=== PATIENT | female | born 1955 | race Caucasian/White ===

== ENCOUNTER 2021-04-18 05:31 | Inpatient (IN) | payer OTHER, SELFPAY ==
[2021-04-18] VITALS (13 sets, daily range): BP systolic 166–196; BP diastolic 60–80; PULSE 55–75; RESP 16–20; TEMP 35.4–36.2; O2SAT 92–100
--- NOTE | ~2021-04-18 | MR_ITS ---
EXAMINATION: MR MRCP wo/w con/w 3D wo ind DATE: 04/19/2021 09:45 INDICATION: Abdominal pain, concern for choledocholithiasis TECHNIQUE: Magnetic resonance imaging (MRI) of the abdomen was performed without and with intravenous contrast. Sequences included coronal T2-weighted SS-FSE ARC, coronal T2-weighted FS SS-FSE, coronal T2-weighted 2D FS FIESTA, Water:Coronal LAVA-Flex, sagittal T2-weighted SS-FSE ARC, axial SSFSE ARC, axial 3D DualEcho, axial DWI B=600, axial T1-weighted LAVA, FAT:Coronal LAVA-Flex, and coronal in and opposed phase LAVA-Flex. Thick-slab T2-weighted FRFSE-XL images were obtained for magnetic resonance cholangiopancreatography (MRCP). Maximum intensity projection 3-D reconstructions of the volumetric data were created by the technologist. Postcontrast sequences included a time course of axial T1-weig hted LAVA, FAT:Coronal LAVA-Flex, coronal in and opposed phase LAVA-Flex, and Water:Coronal LAVA-Flex . COMPARISON: CT, 04/18/2021 CONTRAST: Multihance, 20 cc FINDINGS: ABDOMEN MRI: The gallbladder is surgically absent. There appears to be a stone in the cystic duct rem nant with mild dilatation of the cystic duct and surrounding inflammatory change. A small amount of i nflammatory fluid tracks along the duodenum There is loss of hepatic parenchymal signal on opposed ph ase imaging, consistent with hepatic steatosis. The spleen, pancreas, and adrenal glands are normal. Cysts of the kidneys measure up to 1.2 cm on the left. There are no pathologically enlarged abdominal lymph nodes. No dilated loops of bowel are evident. No abnormal enhancement is present after contras t administration. There is mild lumbar spondylosis. ABDOMEN MRCP: There is no intrahepatic or extrahepatic biliary dilatation. The pancreatic duct is nor mal in caliber. No choledocholithiasis is identified. IMPRESSION: 1. Likely small stone in the cystic duct remnant causing dilation of the cystic duct and surrounding inflammatory change. Reviewed, dictated and finalized at location A.
--- NOTE | ~2021-04-18 | XR_ITS ---
EXAMINATION: XR chest 2V EXAM DATE: 04/20/2021 17:33 INDICATION: Hypoxia. TECHNIQUE: Frontal and lateral projections of the chest obtained and reviewed. Comparison is made to prior examination from 04/18/2021. FINDINGS: There is right lower lobe granuloma. The lungs are otherwise clear. There are no pleural e ffusions. The cardiomediastinal silhouette is within normal limits. There is no pneumothorax suspec tiana. The bones and soft tissues are unremarkable. IMPRESSION: No acute cardiopulmonary findings. Reviewed, dictated and finalized at location A.
--- NOTE | ~2021-04-18 | XR_ITS ---
EXAMINATION: XR ERCP DATE: 04/20/2021 15:12 INDICATION: Abdominal pain. TECHNIQUE: 6 spot fluoroscopic images of the right upper quadrant were obtained during endoscopic ret rograde cholangiopancreatography (ERCP). Fluoroscopy exposure time was 217 seconds. COMPARISON: MRCP 04/19/2021 FINDINGS: Images demonstrate the endoscope in the second portion the duodenum. Images show contrast o pacification of the biliary tree and balloon sweeping of the common duct. There are surgical clips fr om cholecystectomy. IMPRESSION: 1. Balloon sweeping of the common duct. Please refer to the ERCP procedure note for additional detail s. Reviewed, dictated and finalized at location A. IMPRESSION: 1. Balloon sweeping of the common duct. Please refer to the ERCP procedure note for additional details.
--- NOTE | ~2021-04-18 | XR_ITS ---
EXAMINATION: XR chest 2V 04/18/2021 06:21 INDICATION: Chest pressure PROCEDURE: 2 view chest COMPARISON: No prior studies for comparison. FINDINGS: The lungs are clear. The cardiomediastinal silhouette is within normal limits. There are no pleural effusions. There is no pneumothorax suspected. IMPRESSION: 1: NO ACUTE CARDIOPULMONARY DISEASE. Reviewed, dictated and finalized at location A.
--- NOTE | ~2021-04-18 | CT_ITS ---
EXAMINATION: CT abdomen pelvis w con DATE: 04/18/2021 08:39 INDICATION: Bilateral upper abdominal pain and nausea TECHNIQUE: Computed tomography (CT) of the abdomen and pelvis was performed with 100 cc Omnipaque 350 intravenous contrast. The dose-length product was 1503.35 mGy-cm. Automated exposure control and ite rative reconstruction technique were employed. COMPARISON: None. FINDINGS: Lung bases are unremarkable. There is densely calcified granuloma right lower lobe. Heart s ize normal. No significant pleural or pericardial effusion. No significant vascular abnormality. No lymphadenopathy. Fatty infiltration of the liver. There are c holecystectomy clips. There is a stone in what appears to be the common duct, image 58 The spleen, pa ncreas, adrenal glands are unremarkable. There are small hypodense lesions of the kidneys, most likel y benign cysts. Bowel pattern is nonobstructive. No abnormal pelvic masses or fluid collections. Small fat-containing umbilical hernia. IMPRESSION: 1. Possible choledocholithiasis. Prior cholecystectomy. Consider correlation with MRCP. 2: Hepatic steatosis. Reviewed, dictated and finalized at location A. IMPRESSION: 1. Possible choledocholithiasis. Prior cholecystectomy. Consider correlation wi MRCP. 2: Hepatic steatosis.
--- NOTE | 2021-04-18 05:35 | ECG_ITS ---
Measurements Intervals [place] Rate: 55 P: 38 CT: 166 QRS: -7 QRSD: 96 T: 31 QT: 437 QTc: 419 Interpretive Statements SINUS BRADYCARDIA BORDERLINE R WAVE PROGRESSION, ANTERIOR LEADS BORDERLINE T WAVE ABNORMALITY- ANTERIOR LEADS BORDERLINE ECG Electronically Signed On 04-18-2021 8:41:30 CDT by Hugo Salazar D.O.
[2021-04-18 05:57] LABS: Basophils Absolute Auto 0.1 K/mm3 (0.0-0.1); Basophils Percent Auto 0.5 % (0.2-1.2); Eosinophils Absolute Auto 0.2 K/mm3 (0-0.3); Hematocrit 38.8 % (37.0-47.0); Hemoglobin 12.3 g/dL (12.0-15.0); Immature Granulocyte Absolute 0.04 K/mm3 (0.00-0.031); Immature Granulocyte Percent A 0.4 % (0-0.5); Lymphocytes Absolute Auto 2.05 K/mm3 (0.9-3.2); Lymphocytes Percent Auto 20.5 % (18.3-44.2); Mean Corpuscular HGB Conc 31.7 g/dl (32-36); Mean Corpuscular Hemoglobin 30.4 pg (26-34); Mean Corpuscular Volume 95.8 fl (80-100); Mean Platelet Volume 10.4 fl (7.4-10.4); Monocytes Absolute Auto 0.7 K/mm3 (0.1-0.6); Monocytes Percent Auto 6.7 % (2.6-8.5); Neutrophils Percent Auto 69.9 % (45.5-73.1); Platelet Count Result 294 k/mm3 (150-375); Red Blood Count 4.05 M/mm3 (4.2-5.4); Red Cell Distribution Width 12.6 % (11.5-14.5)
[2021-04-18 06:09] LABS: INR 0.8; Prothrombin Time 11.3 Seconds (11.1-14.7)
[2021-04-18 06:10] LABS: Anion Gap 8 mmol/L (8-16); Blood Urea Nitrogen 23 mg/dL (7-17); Calcium 9.4 mg/dL (8.4-10.2); Carbon Dioxide 25 mmol/L (22-30); Chloride 104 mmol/L (98-107); Estimated CRCL calculation 68 ml/min; Estimated Glomerular Filt Rate > 60; Glucose 146 mg/dL (65-110); Partial Thromboplastin Time 26.5 SECONDS (22.3-36.8); Potassium 4.8 mmol/L (3.4-5.0); Sodium 137 mmol/L (137-145)
[2021-04-18 06:21] LABS: Troponin I < 0.012 ng/mL (0.000-0.034)
--- NOTE | 2021-04-18 08:07 | ED.GENADULT ---
HPI - General Adult General Chief complaint: Chest Pain Stated complaint: chest pressure Time Seen by Provider: 04/18/21 08:00 Source: RN notes reviewed History of Present Illness HPI narrative: Patient presents emergency department from home for chest pain. States symptoms began approximately 2 AM this morning the pain is located in the lower midsternal chest described as a pressure patient states the pain radiates into the bilateral upper abdomen she notes associated mild nausea as well as shortness of breath denies any fevers or chills diarrhea or any other symptoms states she not take anything the pain states she has had her gallbladder removed Related Data Home Medications Medication Instructions Recorded Confirmed atorvastatin 04/18/21 04/18/21 clonidine HCl 04/18/21 losartan 04/18/21 metoprolol tartrate 04/18/21 omeprazole 04/18/21 pioglitazone mg 04/18/21 pioglitazone mg 04/18/21 Allergies Allergy/AdvReac Type Severity Reaction Status Date / Time No Known Allergies Allergy Verified 04/18/21 05:40 Review of Systems Review of Systems: Gen.: Denies fevers or chills Eyes: Denies eye pain or visual change ENT: Denies congestion Respiratory: Reports shortness of breath CV: Reports chest pain GI: Reports upper abdominal pain and nausea denies emesis or diarrhea Musculoskeletal: Denies back pain or muscle pain Neuro: Denies numbness, tingling, weakness or focal weakness Skin: Denies rash Except as documented, all other systems reviewed and negative FORMERLY [facility] Past Medical History Medical History (Updated 04/18/21 @ 11:23 by Chano Haskins DO) Diabetes mellitus Hypertension Social History Social History (Updated 04/18/21 @ 08:08 by Chano Haskins DO) Smoking status: Never smoker Exam Narrative: APPEARANCE: No acute distress, nontoxic, resting in bed HEENT: Normocephalic, atraumatic, OMM RESPIRATORY: No respiratory distress, clear to auscultation bilaterally with no rhonchi wheezing or rales CARDIOVASCULAR: RRR s murmur ABDOMINAL: Soft nondistended tender palpation epigastric, right upper quadrant left upper quadrant no tenderness right lower quadrant left lower quadrant no rebound or guarding MUSCULOSKELETAl: Moves all extremities. No clubbing, cyanosis or edema. NEURO: Awake and alert. Following commands, speech normal, no focal deficits SKIN:: Warm, dry. Normal Color PSYCHIATRIC: Normal affect/mood Course Course Emergency Course: Called and discussed with Dr. Macias presentation work-up discussed CT scan results at this time recommends admission he will see patient with likely MRCP Discussed with Dr. Barrera for hospitalist service accepts admission at this time Discussed with patient and family results of workup and diagnosis. Discussed need for admission. Patient and family understand and agree to current treatment plan Vital Signs Vital signs: Vital Signs Temperature 97.2 F L 04/18/21 05:36 Pulse Rate 55 L 04/18/21 05:36 Respiratory Rate 18 04/18/21 05:36 Blood Pressure 184/69 H 04/18/21 05:36 Pulse Oximetry 100 04/18/21 05:36 Temperature 97.2 F L 04/18/21 05:36 Pulse Rate 55 L 04/18/21 05:36 Respiratory Rate 18 04/18/21 05:36 Blood Pressure 184/69 H 04/18/21 05:36 Pulse Oximetry 100 04/18/21 05:36 Medical Decision Making Vital Signs Vital Signs: Vital Signs Temperature 97.2 F L 04/18/21 05:36 Pulse Rate 55 L 04/18/21 05:36 Respiratory Rate 18 04/18/21 05:36 Blood Pressure 184/69 H 04/18/21 05:36 Pulse Oximetry 100 04/18/21 05:36 Temperature 97.2 F L 04/18/21 05:36 Pulse Rate 55 L 04/18/21 05:36 Respiratory Rate 18 04/18/21 05:36 Blood Pressure 184/69 H 04/18/21 05:36 Pulse Oximetry 100 04/18/21 05:36 Lab Data Result diagrams: 04/18/21 05:47 04/18/21 05:47 Labs: Lab Results 04/18/21 04/18/21 04/18/21 Range/Units 05:46 05:47 05:47 WBC 10.0 (4.5-10.0) K/mm3
--- NOTE | 2021-04-18 08:29 | PC.NURSE ---
chem, added on Hepatic Lip
[2021-04-18 08:46] LABS: Alanine Aminotransferase 19 U/L (4-35); Albumin Level 3.7 g/dL (3.5-5.1); Alkaline Phosphatase 69 U/L (38-126); Aspartate Amino Transferase 20 U/L (14-36); Bilirubin,Total 0.3 mg/dL (0.2-1.3); Lipase 109 U/L (23-300)
[2021-04-18] MEDS: SODIUM CHLORIDE 0.9% IV 1,000 ML 999 ML IV CONT (09:01)
[2021-04-18] MEDS: DICYCLOMINE HCL INJ 20 MG/2 ML VIAL IM (09:28)
[2021-04-18 09:37] LABS: Troponin I < 0.012 ng/mL (0.000-0.034)
[2021-04-18] MEDS: ONDANSETRON INJ 4 MG/2 ML VIAL IV PUSH ×4 (10:46→23:45)
[2021-04-18] MEDS: MORPHINE SULFATE (*CRX) 4 MG/ML INJ IV PUSH ×6 (10:49→23:45)
[2021-04-18 12:09] LABS: Troponin I < 0.012 ng/mL (0.000-0.034)
[2021-04-18] MEDS: SODIUM CHLORIDE 0.9% IV 1,000 ML 125 ML IV CONT (12:19)
--- NOTE | 2021-04-18 13:05 | PM.IMHP ---
H&P: HPI History of Present Illness Date/Time: 04/18/21 13:05 Chief Complaint: Chest pressure/heaviness. Narrative: This is a 65-year-old female with hypertension, dyslipidemia, and type 2 diabetes mellitus who presented to the emergency department earlier this morning with complaints of chest pressure/heaviness. She was wakened from sleep at approximately 02:00 with heavy and pressure-like discomfort in the low midsternal chest region radiating into the upper abdomen bilaterally associated with mild shortness of breath as well as nausea. She was also feeling a bit chilled at the time. Initially she thought she was having gas pains as she has had nearly a dozen similar episodes in the last 9 years since she had her gallbladder removed, and each time her symptoms improved with Gas-X. Unfortunately the pain continued today and thus she came in for evaluation. A CT of the abdomen and pelvis done on arrival to the emergency department showed evidence of possible choledocholithiasis and she is being admitted in this setting. It should be noted that her EKG did not show any acute ST segment changes and that she has had 3 negative troponins thus far. She denies fever, exertional chest pain, cough, vomiting, jaundice, pruritus, and diarrhea. Review of Systems Review of Systems: Twelve systems were reviewed. She has not had fever. No recent cold or flu symptoms. No sick contacts. No exertional chest pain or pleuritic pain. No palpitations or orthopnea. She denies lower extremity edema. Suspects that she has sleep apnea as she will of occasionally wake up at night gasping for air and she is frequently tired during the day. She has talked to her primary care provider about this and is in the process of setting up a sleep study. She has occasional GERD symptoms though they are not at all similar to the pain she has been having today. No acholic stools, melena, or hematochezia. She denies dysuria. No history of pancreatitis. She believes her diabetes is well controlled. Except as documented, all other systems were reviewed and are negative. FORMERLY [facility] Past Medical History Medical History (Updated 04/18/21 @ 21:37 by Teresa Day PA-C) Dyslipidemia Glaucoma 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 Hepatic steatosis Hypertension Type 2 diabetes mellitus Surgical History Surgical History (Updated 04/18/21 @ 21:37 by Teresa Day PA-C) History of cholecystectomy (11/2011) Open cholecystectomy. History of eye surgery Family History Family History (Updated 04/18/21 @ 21:37 by Teresa Day PA-C) Other Diabetes mellitus Social History Social History (Updated 04/18/21 @ 21:37 by Teresa Day PA-C) Social History: Lives in [place] with her . Nonsmoker. No alcohol or illicit substance use. She designates her Hermilo as her surrogate decision maker. Code status: Full Code. Meds Home Medications and Allergies Home Medications Medication Instructions Recorded Confirmed Type Humulin N Pen 35 units SUBCUT HS 04/18/21 04/18/21 History Humulin N Pen 40 units SUBCUT DAILY 04/18/21 04/18/21 History ascorbic acid (vitamin C) 1,000 mg BYMOUTH DAILY 04/18/21 04/18/21 History atorvastatin 40 mg PO DAILY 04/18/21 04/18/21 History clonidine HCl 0.2 mg PO BID 04/18/21 04/18/21 History losartan 100 mg PO HS 04/18/21 04/18/21 History metformin 1,000 mg PO BID 04/18/21 04/18/21 History metoprolol tartrate 25 mg PO BID 04/18/21 04/18/21 History omega-3 fatty acids [Fish Oil] 1,000 mg PO DAILY 04/18/21 04/18/21 History omeprazole 20 mg PO DAILY 04/18/21 04/18/21 History oxymetazoline [Afrin Sinus 1 spray INTRANASAL PRN PRN 04/18/21 04/18/21 History (oxymetazoline)] pioglitazone 45 mg PO DAILY 04/18/21 04/18/21 History Allergies Allergy/AdvReac Type Severity Reaction Status Date / Time No Known Allergies Allergy Verified 04/18/21 05:40 Vital Signs Vital Signs - 24 hr 04/18/21 05:36 04/18/21 08:56 04/18/21
--- NOTE | 2021-04-18 14:24 | ADMGEN ---
This patient, Yaima Snell, was admitted to Medical Room [facility]- on 04/18/21 at 1205 Patient/family oriented to hospital policies and general routines including ID bracelet, bed and alarms, visiting hours, pain management, procedures, bathroom and other care routines, personal items, smoking policy, room service/diet, and visiting hours. Information on how to activate the Rapid Response Team has been discussed. Patient/Family are encouraged to report perceived risks to care and to ask questions if they do not understand what they are told or what they should do.
[2021-04-18 15:20] LABS: Hemoglobin A1C 7.3 % (<5.7)
[2021-04-18 16:41] LABS: Glucose Point of Care 140 mg/dl (65-105)
[2021-04-18] MEDS: hydrALAZINE HCL 20 MG/ML VIAL 10 MG IV PUSH (21:37)
[2021-04-18] MEDS: cloNIDine HCL 0.2 MG TABLET PO (22:35)
[2021-04-18] MEDS: LOSARTAN POTASSIUM 100 MG TABLET PO (22:35)
[2021-04-18] MEDS: METOPROLOL TARTRATE 25 MG TABLET PO (22:35)
[2021-04-18 23:39] LABS: Glucose Point of Care 161 mg/dl (65-105)
[2021-04-19] VITALS (7 sets, daily range): BP systolic 140–154; BP diastolic 55–56; PULSE 64–80; RESP 16–18; TEMP 36.3–37.1; O2SAT 91–97
[2021-04-19 05:51] LABS: Basophils Percent Auto 0.3 % (0.2-1.2); Eosinophils Percent Auto 0.1 % (0-4.4); Hematocrit 38.5 % (37.0-47.0); Hemoglobin 12.2 g/dL (12.0-15.0); Immature Granulocyte Absolute 0.09 K/mm3 (0.00-0.031); Immature Granulocyte Percent A 0.6 % (0-0.5); Lymphocytes Absolute Auto 1.17 K/mm3 (0.9-3.2); Lymphocytes Percent Auto 7.4 % (18.3-44.2); Mean Corpuscular HGB Conc 31.7 g/dl (32-36); Mean Corpuscular Volume 94.6 fl (80-100); Mean Platelet Volume 10.4 fl (7.4-10.4); Monocytes Absolute Auto 1.5 K/mm3 (0.1-0.6); Monocytes Percent Auto 9.4 % (2.6-8.5); Neutrophils Percent Auto 82.2 % (45.5-73.1); Platelet Count Result 333 k/mm3 (150-375); Red Blood Count 4.07 M/mm3 (4.2-5.4); Red Cell Distribution Width 12.6 % (11.5-14.5); White Blood Count 15.8 K/mm3 (4.5-10.0)
[2021-04-19] MEDS: MORPHINE SULFATE (*CRX) 4 MG/ML INJ IV PUSH ×2 (05:57→22:32)
[2021-04-19 06:00] LABS: Hemoglobin A1C 7.3 % (<5.7)
[2021-04-19 06:18] LABS: Glucose Point of Care 203 mg/dl (65-105)
[2021-04-19 09:11] LABS: Glucose Point of Care 201 mg/dl (65-105)
[2021-04-19] MEDS: METOPROLOL TARTRATE 25 MG TABLET PO ×2 (09:55→20:13)
[2021-04-19] MEDS: PANTOPRAZOLE 40 MG TABLET PO (09:55)
[2021-04-19] MEDS: cloNIDine HCL 0.2 MG TABLET PO ×2 (09:56→17:16)
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
[2021-04-19 11:22] LABS: Alanine Aminotransferase 25 U/L (4-35); Albumin Level 3.9 g/dL (3.5-5.1); Alkaline Phosphatase 57 U/L (38-126); Anion Gap 9 mmol/L (8-16); Aspartate Amino Transferase 41 U/L (14-36); Bilirubin,Total 0.9 mg/dL (0.2-1.3); Blood Urea Nitrogen 20 mg/dL (7-17); Calcium 8.8 mg/dL (8.4-10.2); Carbon Dioxide 26 mmol/L (22-30); Chloride 102 mmol/L (98-107); Estimated CRCL calculation 78 ml/min; Estimated Glomerular Filt Rate > 60; Glucose 194 mg/dL (65-110); Lipase 35 U/L (23-300); Magnesium 1.1 mg/dL (1.6-2.3); Potassium 5.4 mmol/L (3.4-5.0); Sodium 137 mmol/L (137-145)
[2021-04-19] MEDS: ONDANSETRON INJ 4 MG/2 ML VIAL IV PUSH (12:04)
--- NOTE | 2021-04-19 12:08 | PC.NURSE ---
Patient taken off oxygen, O2 sat is 91%.
[2021-04-19 12:41] LABS: Glucose Point of Care 198 mg/dl (65-105)
[2021-04-19] MEDS: MAGNESIUM SULF 4 GM/WATER100ML 4 GM/100 ML BAG IVPB (13:10)
[2021-04-19 17:09] LABS: Glucose Point of Care 207 mg/dl (65-105)
[2021-04-19] MEDS: INSULIN ASPART (*BKC) 100 UNITS/ML SUB-Q (17:16)
[2021-04-19 17:36] LABS: Anion Gap 7 mmol/L (8-16); Blood Urea Nitrogen 19 mg/dL (7-17); Calcium 8.4 mg/dL (8.4-10.2); Carbon Dioxide 30 mmol/L (22-30); Chloride 97 mmol/L (98-107); Estimated CRCL calculation 78 ml/min; Estimated Glomerular Filt Rate > 60; Glucose 212 mg/dL (65-110); Potassium 4.9 mmol/L (3.4-5.0); Sodium 134 mmol/L (137-145)
[2021-04-19] MEDS: ACETAMINOPHEN 325 MG TABLET 650 MG PO (17:53)
[2021-04-19] MEDS: PSEUDOEPHEDRINE HCL 30 MG TABLET 60 MG PO (22:32)
[2021-04-19 22:43] LABS: Glucose Point of Care 248 mg/dl (65-105)
[2021-04-20] VITALS (20 sets, daily range): BP systolic 128–170; BP diastolic 56–81; PULSE 64–90; RESP 14–21; TEMP 36.1–36.8; O2SAT 94–100
[2021-04-20] MEDS: ONDANSETRON INJ 4 MG/2 ML VIAL IV PUSH (01:14)
[2021-04-20 01:23] LABS: Glucose Point of Care 192 mg/dl (65-105)
[2021-04-20] MEDS: ACETAMINOPHEN 325 MG TABLET 650 MG PO (02:59)
[2021-04-20 06:01] LABS: Basophils Absolute Auto 0.1 K/mm3 (0.0-0.1); Basophils Percent Auto 0.4 % (0.2-1.2); Eosinophils Percent Auto 0.3 % (0-4.4); Hematocrit 34.2 % (37.0-47.0); Hemoglobin 10.9 g/dL (12.0-15.0); Immature Granulocyte Absolute 0.05 K/mm3 (0.00-0.031); Immature Granulocyte Percent A 0.4 % (0-0.5); Lymphocytes Absolute Auto 1.42 K/mm3 (0.9-3.2); Lymphocytes Percent Auto 11.2 % (18.3-44.2); Mean Corpuscular HGB Conc 31.9 g/dl (32-36); Mean Corpuscular Hemoglobin 30.6 pg (26-34); Mean Corpuscular Volume 96.1 fl (80-100); Mean Platelet Volume 10.2 fl (7.4-10.4); Monocytes Absolute Auto 1.1 K/mm3 (0.1-0.6); Monocytes Percent Auto 8.7 % (2.6-8.5); Platelet Count Result 226 k/mm3 (150-375); Red Blood Count 3.56 M/mm3 (4.2-5.4); Red Cell Distribution Width 12.6 % (11.5-14.5); White Blood Count 12.7 K/mm3 (4.5-10.0)
[2021-04-20 06:14] LABS: Alanine Aminotransferase 42 U/L (4-35); Albumin Level 3.6 g/dL (3.5-5.1); Alkaline Phosphatase 70 U/L (38-126); Anion Gap 6 mmol/L (8-16); Aspartate Amino Transferase 48 U/L (14-36); Bilirubin,Total 1.1 mg/dL (0.2-1.3); Blood Urea Nitrogen 16 mg/dL (7-17); Calcium 8.4 mg/dL (8.4-10.2); Carbon Dioxide 32 mmol/L (22-30); Chloride 97 mmol/L (98-107); Estimated CRCL calculation 70 ml/min; Estimated Glomerular Filt Rate > 60; Glucose 210 mg/dL (65-110); Magnesium 1.8 mg/dL (1.6-2.3); Potassium 4.8 mmol/L (3.4-5.0); Sodium 135 mmol/L (137-145)
[2021-04-20 06:50] LABS: Glucose Point of Care 188 mg/dl (65-105)
[2021-04-20] MEDS: cloNIDine HCL 0.2 MG TABLET PO ×2 (09:43→18:21)
[2021-04-20] MEDS: METOPROLOL TARTRATE 25 MG TABLET PO ×2 (09:43→20:21)
[2021-04-20] MEDS: PANTOPRAZOLE 40 MG TABLET PO (09:43)
[2021-04-20] MEDS: PSEUDOEPHEDRINE HCL 30 MG TABLET 60 MG PO (09:48)
[2021-04-20 09:58] LABS: Glucose Point of Care 164 mg/dl (65-105)
[2021-04-20] MEDS: MORPHINE SULFATE (*CRX) 4 MG/ML INJ IV PUSH (10:43)
--- NOTE | 2021-04-20 11:33 | PC.NURSE ---
PT DOWN IN GI LAB FOR ERCP
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
[2021-04-20 11:46] LABS: Glucose Point of Care 210 mg/dl (65-105)
[2021-04-20] MEDS: LACTATED RINGERS 1,000 ML 150 ML IV CONT ×2 (11:51→15:06)
--- NOTE | 2021-04-20 12:15 | WPDANESEPPF ---
Anes - Initial Pre Proc Eval Procedure: Operation Date: 04/20/21 13:00 Proposed Procedures p Endoscopic Retro Cholangiopancreatogram - Nabor Malone MD Date/Time: 04/20/21 12:15 Surgeon: Kesha Rubin PA-C Pre Op Diagnosis: Choledocholithiasis Patient Data Age: 65 Gender: F Height: 1.63 m Weight: 116.2 kg Last Vital Signs Temp 36.1 C L 04/20/21 11:49 Pulse 64 04/20/21 11:49 Resp 14 04/20/21 11:49 BP 128/58 L 04/20/21 11:49 Pulse Ox 94 04/20/21 11:49 Allergies Allergy/AdvReac Type Severity Reaction Status Date / Time No Known Allergies Allergy Verified 04/20/21 11:47 Home Medications Medication Instructions Recorded Confirmed Type Humulin N Pen 35 units SUBCUT HS 04/18/21 04/18/21 History Humulin N Pen 40 units SUBCUT DAILY 04/18/21 04/18/21 History ascorbic acid (vitamin C) 1,000 mg BYMOUTH DAILY 04/18/21 04/18/21 History atorvastatin 40 mg PO DAILY 04/18/21 04/18/21 History clonidine HCl 0.2 mg PO BID 04/18/21 04/18/21 History losartan 100 mg PO HS 04/18/21 04/18/21 History metformin 1,000 mg PO BID 04/18/21 04/18/21 History metoprolol tartrate 25 mg PO BID 04/18/21 04/18/21 History omega-3 fatty acids [Fish Oil] 1,000 mg PO DAILY 04/18/21 04/18/21 History omeprazole 20 mg PO DAILY 04/18/21 04/18/21 History oxymetazoline [Afrin Sinus 1 spray INTRANASAL PRN PRN 04/18/21 04/18/21 History (oxymetazoline)] pioglitazone 45 mg PO DAILY 04/18/21 04/18/21 History Laboratory Tests 04/19/21 04/19/21 04/19/21 11:54 17:00 17:05 WBC RBC Hgb Hct MCV MCH MCHC RDW Plt Count MPV Immature Gran % (Auto) Neut % (Auto) Lymph % (Auto) [place] % (Auto) Eos % (Auto) Baso % (Auto) Lymph # (Auto) [place] # (Auto) Eos # (Auto) Baso # (Auto) Abs Immat Gran (auto) Absolute Neuts (auto) Absolute Nucleated RBC Nucleated RBC % Sodium 134 mmol/L L mmol/L (137-145) Potassium 4.9 mmol/L mmol/L (3.4-5.0) Chloride 97 mmol/L L mmol/L (98-107) Carbon Dioxide 30 mmol/L mmol/L (22-30) Anion Gap 7 mmol/L L mmol/L (8-16) BUN 19 mg/dL H mg/dL (7-17) Creatinine 0.80 mg/dL mg/dL (0.7-1.0) Estim Creat Clear Calc 78 ml/min ml/min Estimated GFR > 60 (59 - ) Glucose 212 mg/dL H mg/dL (65-110) POC Capillary Glucose 198 mg/dl H mg/dl 207 mg/dl H mg/dl (65-105) (65-105) Calcium 8.4 mg/dL mg/dL (8.4-10.2) Magnesium Total Bilirubin AST ALT Alkaline Phosphatase Total Protein Albumin 04/19/21 04/20/21 04/20/21 20:17 01:18 05:55 WBC 12.7 K/mm3 H K/mm3 (4.5-10.0) RBC 3.56 M/mm3 L M/mm3 (4.2-5.4) Hgb 10.9 g/dL L g/dL (12.0-15.0) Hct 34.2 % L % (37.0-47.0) MCV 96.1 fl fl (80-100) MCH 30.6 pg pg (26-34) MCHC 31.9 g/dl L g/dl (32-36) RDW 12.6 % % (11.5-14.5) Plt Count 226 k/mm3 k/mm3 (150-375) MPV 10.2 fl fl (7.4-10.4) Immature Gran % (Auto) 0.4 % % (0-0.5) Neut % (Auto) 79.0 % H % (45.5-73.1) Lymph % (Auto) 11.2 % L % (18.3-44.2) [place] % (Auto) 8.7 % H % (2.6-8.5) Eos % (Auto) 0.3 % % (0-4.4) Baso % (Auto) 0.4 % % (0.2-1.2) Lymph # (Auto) 1.42 K/mm3 K/mm3 (0.9-3.2) [place] # (Auto) 1.1 K/mm3 H K/mm3 (0.1-0.6) Eos # (Auto) 0.0 K/mm3 K/mm3 (0-0.3) Baso # (Auto) 0.1 K/mm3 K/mm3 (0.0-0.1) Abs Immat Gran (auto) 0.05 K/mm3 H K/mm3 (0.00-0.031) Absolute Neuts (au
[2021-04-20] MEDS: INDOMETHACIN 50 MG SUPP.RECT 100 MG RECTAL (13:37)
[2021-04-20 15:38] LABS: Glucose Point of Care 185 mg/dl (65-105)
--- NOTE | 2021-04-20 16:43 | PC.NURSE ---
PT BACK FROM GI LAB
[2021-04-20] MEDS: INSULIN ASPART (*BKC) 100 UNITS/ML SUB-Q (18:25)
[2021-04-20 18:43] LABS: Glucose Point of Care 222 mg/dl (65-105)
[2021-04-20 20:47] LABS: Glucose Point of Care 241 mg/dl (65-105)
[2021-04-21] VITALS (13 sets, daily range): BP systolic 122–158; BP diastolic 50–68; PULSE 67–89; RESP 18–22; TEMP 36.5–37.1; O2SAT 93–100
[2021-04-21] MEDS: ONDANSETRON INJ 4 MG/2 ML VIAL IV PUSH (00:45)
[2021-04-21] MEDS: ACETAMINOPHEN 325 MG TABLET 650 MG PO (02:28)
[2021-04-21 05:58] LABS: Basophils Absolute Auto 0.1 K/mm3 (0.0-0.1); Basophils Percent Auto 0.4 % (0.2-1.2); Eosinophils Absolute Auto 0.1 K/mm3 (0-0.3); Eosinophils Percent Auto 0.9 % (0-4.4); Hematocrit 33.7 % (37.0-47.0); Hemoglobin 10.6 g/dL (12.0-15.0); Immature Granulocyte Absolute 0.08 K/mm3 (0.00-0.031); Immature Granulocyte Percent A 0.6 % (0-0.5); Lymphocytes Absolute Auto 1.04 K/mm3 (0.9-3.2); Lymphocytes Percent Auto 8.2 % (18.3-44.2); Mean Corpuscular HGB Conc 31.5 g/dl (32-36); Mean Corpuscular Hemoglobin 30.1 pg (26-34); Mean Corpuscular Volume 95.7 fl (80-100); Mean Platelet Volume 10.1 fl (7.4-10.4); Monocytes Percent Auto 7.9 % (2.6-8.5); Neutrophils Absolute Auto 10.5 K/mm3 (1.3-6.7); Platelet Count Result 232 k/mm3 (150-375); Red Blood Count 3.52 M/mm3 (4.2-5.4); Red Cell Distribution Width 12.5 % (11.5-14.5); White Blood Count 12.7 K/mm3 (4.5-10.0)
[2021-04-21 06:11] LABS: Alanine Aminotransferase 53 U/L (4-35); Albumin Level 3.5 g/dL (3.5-5.1); Alkaline Phosphatase 90 U/L (38-126); Anion Gap 4 mmol/L (8-16); Aspartate Amino Transferase 51 U/L (14-36); Bilirubin,Total 0.9 mg/dL (0.2-1.3); Blood Urea Nitrogen 14 mg/dL (7-17); Calcium 8.4 mg/dL (8.4-10.2); Carbon Dioxide 33 mmol/L (22-30); Chloride 98 mmol/L (98-107); Estimated CRCL calculation 79 ml/min; Estimated Glomerular Filt Rate > 60; Glucose 220 mg/dL (65-110); Magnesium 1.6 mg/dL (1.6-2.3); Potassium 4.2 mmol/L (3.4-5.0); Sodium 135 mmol/L (137-145)
[2021-04-21] MEDS: METOPROLOL TARTRATE 25 MG TABLET PO ×2 (08:51→20:56)
[2021-04-21] MEDS: MAGNESIUM OXIDE 400 MG TABLET PO (08:51)
[2021-04-21] MEDS: cloNIDine HCL 0.2 MG TABLET PO ×2 (08:51→18:01)
[2021-04-21] MEDS: PANTOPRAZOLE 40 MG TABLET PO (08:51)
[2021-04-21 09:09] LABS: Glucose Point of Care 183 mg/dl (65-105)
--- NOTE | 2021-04-21 10:29 | WPDANESPN ---
Anes - Prog Note Post-Op Date/Time: 04/21/21 10:29 Cardiovascular status: normal Respiratory status: normal Airway patency: baseline Mental status: baseline Post-Op hydration status: normal Vital Signs: Last Vital Signs Temp 36.5 C 04/21/21 05:06 Pulse 89 04/21/21 08:51 Resp 22 H 04/21/21 05:06 BP 158/68 H 04/21/21 05:06 Pulse Ox 96 04/21/21 05:06 Pain Score (VAS): 2 I/O: Intake & Output 04/20/21 04/21/21 04/21/21 23:59 07:59 15:59 Intake Total 290 325 Output Total 650 600 Balance -360 -275 Laboratory Tests 04/21/21 05:53 04/21/21 05:53 04/20/21 04/20/21 04/20/21 11:43 15:34 18:24 WBC RBC Hgb Hct MCV MCH MCHC RDW Plt Count MPV Immature Gran % (Auto) Neut % (Auto) Lymph % (Auto) Hunt % (Auto) Eos % (Auto) Baso % (Auto) Lymph # (Auto) Hunt # (Auto) Eos # (Auto) Baso # (Auto) Abs Immat Gran (auto) Absolute Neuts (auto) Absolute Nucleated RBC Nucleated RBC % Sodium Potassium Chloride Carbon Dioxide Anion Gap BUN Creatinine Estim Creat Clear Calc Estimated GFR Glucose POC Capillary Glucose 210 H 185 H 222 H Calcium Magnesium Total Bilirubin Direct Bilirubin AST ALT Alkaline Phosphatase Total Protein Albumin 04/20/21 04/21/21 04/21/21 20:16 05:53 05:53 WBC 12.7 H RBC 3.52 L Hgb 10.6 L Hct 33.7 L MCV 95.7 MCH 30.1 MCHC 31.5 L RDW 12.5 Plt Count 232 MPV 10.1 Immature Gran % (Auto) 0.6 H Neut % (Auto) 82.0 H Lymph % (Auto) 8.2 L Hunt % (Auto) 7.9 Eos % (Auto) 0.9 Baso % (Auto) 0.4 Lymph # (Auto) 1.04 Hunt # (Auto) 1.0 H Eos # (Auto) 0.1 Baso # (Auto) 0.1 Abs Immat Gran (auto) 0.08 H Absolute Neuts (auto) 10.5 H Absolute Nucleated RBC 0.0 Nucleated RBC % 0.0 Sodium 135 L Potassium 4.2 Chloride 98 Carbon Dioxide 33 H Anion Gap 4 L BUN 14 Creatinine 0.80 Estim Creat Clear Calc 79 Estimated GFR > 60 Glucose 220 H POC Capillary Glucose 241 H Calcium 8.4 Magnesium 1.6 Total Bilirubin 0.9 Direct Bilirubin 0.0 AST 51 H ALT 53 H Alkaline Phosphatase 90 Total Protein 7.0 Albumin 3.5 04/21/21 09:00 WBC RBC Hgb Hct MCV MCH MCHC RDW Plt Count MPV Immature Gran % (Auto) Neut % (Auto) Lymph % (Auto) Hunt % (Auto) Eos % (Auto) Baso % (Auto) Lymph # (Auto) Hunt # (Auto) Eos # (Auto) Baso # (Auto) Abs Immat Gran (auto) Absolute Neuts (auto) Absolute Nucleated RBC Nucleated RBC % Sodium Potassium Chloride Carbon Dioxide Anion Gap BUN Creatinine Estim Creat Clear Calc Estimated GFR Glucose POC Capillary Glucose 183 H Calcium Magnesium Total Bilirubin Direct Bilirubin AST ALT Alkaline Phosphatase Total Protein Albumin Post-procedural complaints: none Patient Feedback: Patient satisfied with anesthetic care.
--- NOTE | 2021-04-21 12:37 | WPDGIPROGNO ---
Progress Note: A&P Assessment and Plan (1) Upper abdominal pain: Code(s): R10.10 - Upper abdominal pain, unspecified Status: Acute Assessment and Plan: ercp did not reveal obvious stone, clear ducts she is feeling better, expect to have mild elevated liver enzymes advance to low fat diet and she can go home today if can tolerate (2) Bile duct abnormality: Code(s): K83.9 - Disease of biliary tract, unspecified Status: Acute Assessment and Plan: ercp yesterday (3) Glaucoma: Code(s): H40.9 - Unspecified glaucoma Status: Acute (4) Type 2 diabetes mellitus: Code(s): E11.9 - Type 2 diabetes mellitus without complications Status: Acute (5) Hypomagnesemia: Code(s): E83.42 - Hypomagnesemia Status: Acute Assessment and Plan: treated on admission and normal now Subjective Date/time seen: 04/21/21 12:37 Interval history: ercp yesterday with sphincterotomy and clean bile duct. Tolerating liquid diet and only minimal abdominal discomfort. Overall better since admission Review of Systems Review of Systems: All systems reviewed & are unremarkable except as noted in HPI and below Exam Const: General: comfortable and no acute distress HENMT: General nose exam: Normal nares present Eyes: Other: glaucoma, blind Neck: Neck: supple Resp: Auscultation: clear to auscultation bilaterally Cardio: Rate: regular rate GI: Inspection: non-distended GI Palp: Yes Soft to palpation and No Guarding due to palpation present (GI) Auscultation: normal bowel sounds Skin: General skin exam: normal color Neuro: Speech: normal speech Motor exam (neuro): Normal motor muscle tone present throughout Extrem: General: normal to inspection Psych: Mental Status: mental status grossly normal Objective Data Vital Signs Vital Signs: Vital Signs - 24 hr 04/20/21 15:29 04/20/21 15:39 04/20/21 15:49 Temperature 97.8 F Pulse Rate 80 76 79 Respiratory Rate 21 H 21 H 21 H Blood Pressure 160/77 H 158/81 H 170/81 H Pulse Oximetry 96 96 99 04/20/21 15:59 04/20/21 16:09 04/20/21 16:19 Temperature Pulse Rate 80 75 83 Respiratory Rate 19 19 20 Blood Pressure 163/76 H 155/72 H 165/79 H Pulse Oximetry 100 100 95 04/20/21 16:29 04/20/21 17:50 04/20/21 18:19 Temperature 98.3 F 98.0 F Pulse Rate 90 65 72 Respiratory Rate 17 18 18 Blood Pressure 160/78 H 152/62 H 156/63 H Pulse Oximetry 95 96 98 04/20/21 18:45 04/20/21 20:00 04/20/21 20:16 Temperature 98.3 F 97 F L Pulse Rate 67 76 80 Respiratory Rate 18 20 Blood Pressure 155/68 H 149/56 H Pulse Oximetry 100 98 04/20/21 20:20 04/20/21 20:21 04/21/21 00:00 Temperature Pulse Rate 70 73 Respiratory Rate Blood Pressure Pulse Oximetry 98 04/21/21 01:37 04/21/21 04:00 04/21/21 05:06 Temperature 97.7 F Pulse Rate 67 78 82 Respiratory Rate 18 22 H Blood Pressure 158/68 H Pulse Oximetry 100 96 04/21/21 08:00 04/21/21 08:51 Temperature Pulse Rate 78 89 Respiratory Rate Blood Pressure Pulse Oximetry Intake/Output Intake/Output: Intake & Output 04/18/21 04/19/21 04/20/21 04/21/21 23:59 23:59 23:59 23:59 Intake Total 3579 038 2346 325 Output Total 0 300 1150 1100 Balance 1100 230 -00 -482 Meds/Results Medications: Active Medications Generic Name Dose Route Start Last Admin Trade Name Freq PRN Reason Stop Dose Admin Acetaminophen 650 mg 04/19/21 17:48 04/21/21 02:28 Acetaminophen 325 Mg Tablet PO 650 mg Q6H PRN Administration Mild Pain (1-3) or Fever Clonidine HCl 0.2 mg 04/18/21 21:45 04/21/21 08:51 Clonidine Hcl 0.2 Mg Tablet PO 0.2 mg BID DAYDAY Administration Dextrose 12.5 gm 04/18/21 13:09 Dextrose 50% 25 Gm/50 Ml Syringe IV PUSH PRN PRN Hypoglycemia Protocol Glucagon 1 mg 04/18/21 13:09 Glucagon For Inj 1 Mg Vial IM PRN PRN Hypoglycemia Protocol Glucose
[2021-04-21 12:40] LABS: Glucose Point of Care 207 mg/dl (65-105)
[2021-04-21] MEDS: INSULIN ASPART (*BKC) 100 UNITS/ML SUB-Q ×2 (12:52→18:05)
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
[2021-04-21] MEDS: PSEUDOEPHEDRINE HCL 30 MG TABLET 60 MG PO (18:00)
[2021-04-21 19:26] LABS: Glucose Point of Care 350 mg/dl (65-105)
[2021-04-21 21:39] LABS: Glucose Point of Care 302 mg/dl (65-105)
[2021-04-22 04:14] VITALS: BP 153/63; PULSE 74; RESP 16; TEMP 37.2; O2SAT 94
[2021-04-22 09:27] VITALS: PULSE 72
[2021-04-22] MEDS: cloNIDine HCL 0.2 MG TABLET PO (09:27)
[2021-04-22] MEDS: MAGNESIUM OXIDE 400 MG TABLET PO (09:27)
[2021-04-22] MEDS: PSEUDOEPHEDRINE HCL 30 MG TABLET 60 MG PO (09:27)
[2021-04-22] MEDS: METOPROLOL TARTRATE 25 MG TABLET PO (09:27)
[2021-04-22] MEDS: PANTOPRAZOLE 40 MG TABLET PO (09:27)
[2021-04-22] MEDS: INSULIN ASPART (*BKC) 100 UNITS/ML SUB-Q ×2 (09:33→12:47)
[2021-04-22 09:44] LABS: Glucose Point of Care 306 mg/dl (65-105)
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
[2021-04-22 12:02] LABS: Glucose Point of Care 373 mg/dl (65-105)
== END 2021-04-22 13:50 | disposition home or self-care (01) | DRG 444 ==
LOC: ANHED 11:23 → ANH3MED 11:26
PROVIDERS: Emergency Medicine; Internal Medicine Gastroenterology; Physician Assistant; Admitting Provider Internal Medicine; Emergency Provider Emergency Medicine; PCP Family Medicine; Visit Provider Nurse Practitioner Adult Health
PROC: 0D758ZZ Dilation of Esophagus, Via Natural or Artificial Opening Endoscopic (ICD-10-PCS; CPT 43260; principal; 2021-04-20 13:00)
DX: K80.50 Calculus of bile duct without cholangitis or cholecystitis without obstruction (principal); J96.01 Acute respiratory failure with hypoxia; D72.829 Elevated white blood cell count, unspecified; R10.10 Upper abdominal pain, unspecified; K22.2 Esophageal obstruction; K83.9 Disease of biliary tract, unspecified; E83.42 Hypomagnesemia; I10 Essential (primary) hypertension; E11.9 Type 2 diabetes mellitus without complications; E78.5 Hyperlipidemia, unspecified; H40.9 Unspecified glaucoma; R05.3 Chronic cough; Z79.4 Long term (current) use of insulin; Z79.84 Long term (current) use of oral hypoglycemic drugs; Z79.899 Other long term (current) drug therapy; Z90.49 Acquired absence of other specified parts of digestive tract
CPT/HCPCS: 36415; 71046; 74177; 74183; 74329; 76376; 80048; 80053; 80076; 82948; 83036; 83690; 83735; 84484; 85025; 85610; 85730; 93005; 94762; 96365; 96367; 96372; 96375; 96376; 97161; 97165; 99285; A9270; A9577; C1726; G0378; J0131; J0330; J0360; J0500; J1815; J1940; J2270; J2405; J2543; J2704; J3475; J7030; J7120; Q9967

== ENCOUNTER 2022-09-14 16:09 | Outpatient (CLI) | payer OTHER, SELFPAY ==
--- NOTE | ~2022-09-14 | MM_ITS ---
EXAMINATION: MM screening [facility] BI w [facility] HISTORY: Screening mammogram TECHNIQUE: Craniocaudal and mediolateral oblique 3-D tomosynthesis images were obtained and synthetic 2-D images were generated. CAD analysis was submitted and interpreted. COMPARISON: No prior mammogram is available for comparison at this institution. BREAST PARENCHYMAL COMPOSITION: The breasts are almost entirely fatty. FINDINGS: There is no evidence of suspicious mass, calcification, or architectural distortion to sugg est malignancy in either breast. There has been no suspicious interval change. IMPRESSION: 1. No mammographic evidence of malignancy. 2. Recommend routine screening mammography in one year. BI-RADS Category 1: Negative Reviewed, dictated and finalized at location [facility]
== END 2022-09-14 16:10 | disposition home or self-care (01) ==
DX: Z12.31 Encounter for screening mammogram for malignant neoplasm of breast (principal)
CPT/HCPCS: 77063; 77067

== ENCOUNTER 2023-11-29 16:36 | Emergency (ER) | payer OTHER, SELFPAY ==
--- NOTE | ~2023-11-29 | XR_ITS ---
EXAMINATION: XR chest 2V Exam Date/Time: 11/29/2023 17:25 CDT HISTORY: cough and congestion x 11 days Comparison: 04/20/2021. RESULT: Lines, tubes, and devices: None. Lungs and pleura: Segmental left lower lobe consolidation. Cardiomediastinal silhouette: Stable. Other: No acute osseous or upper abdominal finding. IMPRESSION: Segmental left lower lobe consolidation concerning for pneumonia. Recommend radiographic follow-up to demonstrate resolution. Reviewed, dictated and finalized at location K. IMPRESSION: Segmental left lower lobe consolidation concerning for pneumonia. Recommend rad iographic follow-up to demonstrate resolution.
--- NOTE | 2023-11-29 16:46 | ED.URI ---
HPI - URI/Sore Throat General Chief Complaint: Upper Respiratory Infection Stated Complaint: cough,congested Time Seen by Provider: 11/29/23 17:15 Source: patient, RN notes reviewed and old records reviewed Mode of arrival: ambulatory Limitations: no limitations History of Present Illness HPI Narrative: 68-year-old female presents to the [facility] with complaints cough, congestion for 1 week. States it got worse on Tuesday, 4 days ago. Denies fevers. Reports shortness of breath. Has taken Mucinex DM, NyQuil Denies chest pain Onset (ago): week(s) (1) Treatments prior to arrival: cold medicine Related Data Home Medications Medication Instructions Recorded Confirmed atorvastatin 40 mg tablet 40 mg PO DAILY 04/18/21 11/29/23 clonidine HCl 0.2 mg tablet 0.2 mg PO BID 04/18/21 11/29/23 losartan 100 mg tablet 100 mg PO HS 04/18/21 11/29/23 metformin 1,000 mg tablet 1,000 mg PO BID 04/18/21 11/29/23 metoprolol tartrate 25 mg tablet 25 mg PO BID 04/18/21 11/29/23 omega-3 fatty acids 1,000 mg PO DAILY 04/18/21 11/29/23 omeprazole 20 mg capsule,delayed 20 mg PO DAILY 04/18/21 11/29/23 release amlodipine 5 mg tablet 5 mg PO DAILY 11/29/23 11/29/23 dulaglutide 3 mg/0.5 mL 3 mg subcut WEEKLY 11/29/23 11/29/23 subcutaneous pen injector (Trulicity) furosemide 20 mg tablet 20 mg PO DAILY 11/29/23 11/29/23 insulin glargine-yfgn 100 unit/mL See Rx Instructions .Route .COMPLEX 11/29/23 11/29/23 (3 mL) subcutaneous pen (Semglee (insulin glargine-yfgn) Pen) Allergies Allergy/AdvReac Type Severity Reaction Status Date / Time No Known Allergies Allergy Verified 11/29/23 16:59 Review of Systems Review of Systems: All systems reviewed & are unremarkable except as noted in HPI and below Constitutional: Constitutional: Reports no additional constitutional complaints Eyes: Eyes: Reports no additional eye complaints ENT: Reports as per HPI, Reports nasal congestion, Reports sinus pain and Reports sinus pressure Cardiovascular: Cardiovascular: Reports no additional cardiovascular complaints, Denies chest pain and Denies dyspnea Respiratory: Respiratory: Reports as per HPI, Reports chest congestion, Reports cough and Reports dyspnea Gastrointestinal: Gastrointestinal: Reports no additional gastrointestinal complaints, Denies abdominal pain, Denies nausea and Denies vomiting Musculoskeletal: Musculoskeletal: Reports no additional musculoskeletal complaints Integumentary/Breasts: Skin/Breast: Reports system reviewed and no additional complaints, except as docu Neurologic: Reports system reviewed and no additional complaints, except as documented Psychiatric: Psychiatric: Reports no additional psychiatric complaints Allergic/Immunologic: Allergic/Immunologic: Reports no additional allergic/immunologic complaints [facility] Past Medical History Medical History Bile duct abnormality Dyslipidemia Glaucoma 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 Hepatic steatosis Hypertension Leukocytosis Type 2 diabetes mellitus Upper abdominal pain Surgical History Surgical History History of cholecystectomy (11/2011) Open cholecystectomy. History of eye surgery Family History Family History Other Diabetes mellitus Social History Social History Social History: Lives in [place] with her . Nonsmoker. No alcohol or illicit substance use. She designates her Hermilo as her surrogate decision maker. Code status: Full Code. Comments At the time of my signature, I reviewed and agree with the nursing past medical, surgical, social, and family history. There is no relevant family history pertinent to the patient complaint. Exam Const: General: cooperative, no acute distress, well developed, alert, ill appea
[2023-11-29 16:48] VITALS: BP 132/59; PULSE 70; RESP 20; TEMP 36.3; O2SAT 96
== END 2023-11-29 18:28 | disposition home or self-care (01) ==
PROVIDERS: Emergency Provider Nurse Practitioner
DX: J18.9 Pneumonia, unspecified organism (principal); E78.5 Hyperlipidemia, unspecified; E11.39 Type 2 diabetes mellitus with other diabetic ophthalmic complication; H42 Glaucoma in diseases classified elsewhere; Z79.84 Long term (current) use of oral hypoglycemic drugs; Z79.4 Long term (current) use of insulin; I10 Essential (primary) hypertension; H54.8 Legal blindness, as defined in USA
CPT/HCPCS: 71046; 99213; G0463

== ENCOUNTER 2024-03-13 15:43 | Outpatient (CLI) | payer OTHER, SELFPAY ==
--- NOTE | ~2024-03-13 | MM_ITS ---
EXAMINATION: MM screening [facility] BI w gisele HISTORY: Screening TECHNIQUE: Craniocaudal and mediolateral oblique 3-D tomosynthesis images were obtained and synthetic 2-D images were generated. CAD analysis was submitted and interpreted. COMPARISON: 09/14/2022 BREAST PARENCHYMAL COMPOSITION: Not Dense. The breasts are almost entirely fatty. FINDINGS: There is no evidence of suspicious mass, calcification, or architectural distortion to sugg est malignancy in either breast. There has been no suspicious interval change. IMPRESSION: 1. No mammographic evidence of malignancy. 2. Recommend routine screening mammography in one year. BI-RADS Category 1: Negative Reviewed, dictated and finalized at location B.
== END 2024-03-13 15:44 | disposition home or self-care (01) ==
DX: Z12.31 Encounter for screening mammogram for malignant neoplasm of breast (principal)
CPT/HCPCS: 77063; 77067